=== PATIENT | female | born 1965 | race Caucasian/White ===

== ENCOUNTER 2016-11-28 02:50 | Emergency (ER) | payer OTHER ==
[~2016-11-28] VITALS: Ht 175.3 cm; Wt 66.6 kg
[~2016-11-28 02:50] MED LIST: ADVIL,NUPRIN,M200 MG PO; ALPRAZOLAM0.5 MG PO; ASPIR 8181 M1 PO; ATORVASTATIN CA20 MG PO; BUSPAR15 MG PO; BUSPIRONE HCL15 MG PO; CYMBALTA20 MG PO; CYMBALTA30 MG PO; DOCU SOFT100 MG PO; Ecotrin PO; FLEXERIL10 MG PO; GABAPENTIN300 MG PO; HYDROCHLOROTH12.5 M3 PO; LEVO-T100 MCG PO; LEVOTHYROXINE100 MCG PO; LEXAPRO10 MG PO; LIPITOR20 MG PO; LISINOPRIL-HCT1 EACH PO; LISINOPRIL10 MG PO; LO-DOSE ASPIRIN81 M1 PO; LO-DOSE ASPIRIN81 M2 PO; LORTAB 5-325 M1 EACH PO; LOW DOSE ASPIRI81 M1 PO; Lipitor PO; MEDROL DOSEPAK4 MG PO; METOPROLOL SUCC25 MG PO; MOTRIN600 MG PO; NAPROSYN500 MG PO; NAPROXEN500 M1 PO; ROPINIROLE HC0.25 MG PO; SIMETHICONE180 MG PO; SKELAXIN800 MG PO; SYNTHROID100 MCG PO; TOPAMAX100 MG PO; TOPROL XL25 MG PO; TRAMADOL HCL50 MG PO; TRAZODONE HCL50 MG PO; Topamax PO; Toprol XL PO; ULTRAM50 MG PO; XANAX0.25 MG PO; XANAX0.5 MG PO; ZESTORETIC 10-1 EAC1 PO
[2016-11-28] MEDS ORDERED: NORCO 5/3251 TABLET PO (05:35)
[2016-11-28 06:00] VITALS: BP 123/78
== END 2016-11-28 06:01 | disposition home or self-care (01) ==
LOC: EME 02:50 → EXP 02:50
DX: S20.229A Contusion of unspecified back wall of thorax, initial encounter (principal); S40.011A Contusion of right shoulder, initial encounter; R20.2 Paresthesia of skin; R20.0 Anesthesia of skin; V49.40XA Driver injured in collision with unspecified motor vehicles in traffic accident, initial encounter; I10 Essential (primary) hypertension; Z79.82 Long term (current) use of aspirin; Z86.73 Personal history of transient ischemic attack (TIA), and cerebral infarction without residual deficits; F17.200 Nicotine dependence, unspecified, uncomplicated
CPT/HCPCS: 70450; 72070; 72125; 73010; 99281; 99283

== ENCOUNTER 2017-01-17 12:28 | Observation (INO) | payer OTHER ==
[~2017-01-17] VITALS: Ht 175.3 cm; Wt 70.5 kg
[~2017-01-17 12:28] MED LIST changes: -LEVO-T100 MCG PO; +NORCO 5/3251 TABLET PO
[2017-01-17 12:59] LABS: BASOPHIL COUNT 0.1 K/uL (0-0.1); EOSINOPHIL (%) 3.2 % (0-5); EOSINOPHIL COUNT 0.2 K/uL (0-0.3); HEMATOCRIT 44.4 % (36.0-46.0); IMMATURE GRANULOCYTE (%) 0.2 % (0.0-0.7); INSTRUMENT ABS NEUTROPHIL CT 4.1 K/uL; LYMPHOCYTE COUNT 1.8 K/uL (1.0-2.8); MCHC 33.1 G/DL (30.0-36.0); MCV 90.6 FL (83-99); MEAN PLAT.VOLUME 10.6 uM^3 (9.5-12.4); MONOCYTE (%) 7.5 % (3-12); MONOCYTE COUNT 0.5 K/uL (0-0.8); NEUTROPHIL COUNT 4.1 K/uL (1.8-6.4); PLATELET COUNT 214 K/uL (156-360); RBC DIS.WIDTH-CV 12.3 % (11.8-14.6); RBC DIS.WIDTH-SD 41.1 % (39-53); WHITE BLOOD COUNT 6.7 K/uL (4.1-10.2)
[2017-01-17 13:09] LABS: CHLORIDE 106 mEq/L (99-109); POTASSIUM 4.2 mEq/L (3.7-5.4); SODIUM 140 mEq/L (136-147)
[2017-01-17 13:11] LABS: GLUCOSE 86 mg/dL (70-99)
[2017-01-17 13:12] LABS: ANION GAP 10 MEQ/L (2-14)
[2017-01-17 13:13] LABS: TOTAL BILIRUBIN 0.3 mg/dL (0.0-1.0)
[2017-01-17 13:14] LABS: ALKALINE PHOSPHATASE 105 IU/L (3-129)
[2017-01-17 13:15] LABS: GFR ESTIMATE (CALCULATED) > 59 mL/min/
[2017-01-17 13:16] LABS: UREA NITROGEN (BUN) 13 mg/dL (9-23)
[2017-01-17 13:19] LABS: TROP-I INTERPRETATION NEGATIVE; TROPONIN-I < 0.01 ng/mL (0.0-0.30)
[2017-01-17 13:49] LABS: HDL CHOLESTEROL 61 MG/DL (Desirable>=50); LDL CHOLESTEROL 97 mg/dL (Desirable<100); NON-HDL CHOLESTEROL 121 mg/dL (Desirable<160); TOTAL CHOLESTEROL 182 mg/dL (Desirable<200); TRIGLYCERIDES 122 MG/DL (Normal: <150)
[2017-01-17 14:00] LABS: ADD MIUA? YES; BILIRUBIN NEGATIVE; BLOOD NEGATIVE; COLOR STRAW ((YELLOW)); GLUCOSE (STRIP) NEGATIVE; KETONES NEGATIVE; LEUKOCYTES TRACE; NITRITE NEGATIVE; PROTEIN (STRIP) NEGATIVE; SPECIFIC GRAVITY 1.005 (1.000-1.030); UROBILINOGEN 0.2 MG/DL (0.2-1.0)
[2017-01-17 14:07] LABS: BACTERIA NONE SEEN /HPF; EPITHELIAL CELLS RARE /HPF; MUCUS TRACE /LPF; RED BLOOD CELLS 0-5 /HPF (0-5); UCUL ADDED? NO; WHITE BLOOD CELLS 0-5 /HPF (0-5)
[2017-01-17 14:13] LABS: ADD MEDTOX COMMENT Y; AMPHETAMINE NEGATIVE (500 ng/mL); BARBITURATES NEGATIVE (200 ng/mL); BENZODIAZEPINES PRESUMPTIVE POSITIVE (150 ng/mL); COCAINE NEGATIVE (150 ng/mL); INTERNAL CONTROLS VALID? YES; METHADONE NEGATIVE (200 ng/mL); METHAMPHETAMINE NEGATIVE (500 ng/mL); OPIATES (MORPHINE) NEGATIVE (100 ng/mL); OXYCODONE NEGATIVE (100 ng/mL); PHENCYCLIDINE NEGATIVE (25 ng/mL); PROPOXYPHENE NEGATIVE (300 ng/mL); THC CANNABINOIDS NEGATIVE (50 ng/mL); TRICYCLIC ANTIDEPRESSANTS NEGATIVE (300 ng/mL)
[2017-01-17 14:40] LABS: BENZODIAZEPINES, URINE SCREEN POSITIVE (200 ng/mL)
[2017-01-17] MEDS ORDERED: AMLODIPINE BES2.5 MG PO (16:01)
[2017-01-17] MEDS ORDERED: ATORVASTATIN CA40 MG PO (16:02)
[2017-01-17 17:15] VITALS: BP 121/77
[2017-01-18 07:50] LABS: Estimated Average Glucose 111 mg/dL (70-123); HEMOGLOBIN A1c (GLYCOHEMOGLOB) 5.5 % HGB (Below 5.7)
== END 2017-01-17 18:46 | disposition left against medical advice (07) ==
LOC: EME → EDBD 12:28 → EME 12:28 → EDOF 15:38 → ENRESERV 15:40 → 5WEST 17:04
PROVIDERS: Emergency Medicine
DX: H53.2 Diplopia (principal); R26.81 Unsteadiness on feet; R20.0 Anesthesia of skin; R55 Syncope and collapse; R53.1 Weakness; Z86.73 Personal history of transient ischemic attack (TIA), and cerebral infarction without residual deficits; E03.9 Hypothyroidism, unspecified; I73.9 Peripheral vascular disease, unspecified; I10 Essential (primary) hypertension; M79.7 Fibromyalgia; E78.5 Hyperlipidemia, unspecified; F41.9 Anxiety disorder, unspecified; F32.9 Major depressive disorder, single episode, unspecified; F17.210 Nicotine dependence, cigarettes, uncomplicated; Z66 Do not resuscitate
CPT/HCPCS: 70450; 70551; 71020; 80053; 80061; 81003; 83036; 84484; 84999; 85025; 93005; 99281; 99284; G0378; J1650